=== PATIENT | male | born 1960 | race Caucasian/White ===

== ENCOUNTER 2019-05-09 09:59 | Emergency (ER) | payer BC ==
[2019-05-09] MEDS ORDERED: Sodium Chloride 0.9% 2.5 ML Syringe FLUSH PRN (10:11)
[2019-05-09] MEDS ORDERED: Sodium Chloride 0.9% 10 ML Syringe FLUSH PRN (10:11)
[2019-05-09] MEDS ORDERED: methylPREDNISolone Sodium Succinate 125 MG/2 ML SDV IVPUSH ONE (10:12)
--- NOTE | 2019-05-09 10:12 | EDM.PDOC ---
ED HPI GENERAL MEDICAL PROBLEM - General Chief Complaint: ENT Problem Stated Complaint: MOUTH COMPLAINT Time Seen by Provider: 05/09/19 10:10 Source of Information: Reports: Patient History Limitations: Reports: No Limitations - History of Present Illness INITIAL COMMENTS - FREE TEXT/NARRATIVE: HISTORY AND PHYSICAL: History of present illness: Patient is a 58-year-old male presents to the ED with complaint of sore throat and swelling. He states it started yesterday. He states his tongue is sore and swollen and having pain in his throat, mostly on the left. He is able to swallow his secretions most of the time but is having some trouble with this. He denies fevers, chills, shortness of breath, stridor, or wheezing. Review of systems: As per history of present illness and below otherwise all systems reviewed and negative. Past medical history: As per history of present illness and as reviewed below otherwise noncontributory. Surgical history: As per history of present illness and as reviewed below otherwise noncontributory. Social history: No reported history of drug or alcohol abuse. Family history: As per history of present illness and as reviewed below otherwise noncontributory. Physical exam: General: Patient sitting comfortably in no acute distress and nontoxic appearing HEENT: Tongue is swollen and slightly erythematous and tender to palpation. His left tonsils is 2+ and erythematous with exudate. Atraumatic, normocephalic, pupils reactive, negative for conjunctival pallor or scleral icterus, mucous membranes moist, neck supple, nontender, trachea midline. No meningeal signs. Lungs: Clear to auscultation, breath sounds equal bilaterally, chest nontender. Heart: S1S2, regular, negative for clicks, rubs, or overt murmur. Abdomen: Soft, nondistended, nontender. Negative for masses or hepatosplenomegaly. Negative for costovertebral tenderness. No rigidity, rebound , guarding. Pelvis: Stable nontender. Genitourinary: Deferred. Rectal: Deferred. Extremities: Atraumatic, negative for cords or calf pain. Neurovascular unremarkable. Neuro: Awake, alert, oriented. Cranial nerves II through XII unremarkable. Cerebellum unremarkable. Motor and sensory unremarkable throughout. Exam nonfocal. Notes: Discussed with patient admitting for IV antibiotics which he declined at this time and understands my concerns and the risks of this including . Diagnostics: CBC, CMP, Rapid strep, soft tissue neck x-ray Therapeutics: 1L NS IV 10mg Decadron IV 1g Rocephin IV Prescriptions: Impression: Tonsillitis, glossitis Plan: Patient signed out AMA Definitive disposition and diagnosis as appropriate pending reevaluation and review of above. Throat Pain Score (Numeric/FACES): 8 - Related Data Allergies Allergy/AdvReac Type Severity Reaction Status Date / Time No Known Allergies Allergy Verified 05/09/19 10:04 Home Meds: Home Meds Penicillin V Potassium 500 mg PO TID 10 Days #30 tab 05/09/19 [Rx] methylPREDNISolone [Medrol] 4 mg PO ASDIRECTED #1 tab.ds.pk 05/09/19 [Rx] Past Medical History - Past Health History Medical/Surgical History: Denies Medical/Surgical History Social & Family History - Family History Family Medical History: Noncontributory - Tobacco Use Smoking Status *Q: Current Every Day Smoker Years of Tobacco use: 40 Packs/Tins Daily: 0 - Recreational Drug Use Recreational Drug Use: No ED ROS ENT - Review of Systems Review Of Systems: ROS reveals no pertinent complaints other than HPI. ED EXAM, ENT - Physical Exam Exam: See Below (see dictation) Course - Vital Signs Last Recorded V/S: Last Vital Signs Temp 97.5 F 05/09/19 10:01 Pulse 98 05/09/19 13:12 Resp 16 05/09/19 13:12 BP 121/70 05/09/19 13:12 Pulse Ox 96 05/09/19 13:12 - Orders/Labs/Meds Orders: Active Orders 24 hr Category Date Time Status CULTURE BLOOD [BC] Stat Lab 05/09/19 10:28 Received CULTURE BLOOD [BC] Stat Lab 05/09/19 10:53 Received CULTURE STREP A CONFIRMATION [RM] Stat Lab 05/09/19 10:05 Results STREP SCRN A RAPID W CULT CONF [RM] Stat Lab 05/09/19 10:05 Results Blood Culture x2 Reflex Set [OM.PC] Stat Oth 05/09/19 10:35 Ordered Saline Lock Insert [OM.PC] Stat Oth 05/09/19 10:11 Ordered Labs: Laboratory Tests 05/09/19 05/09/19 05/09/19 Range/Units 10:28 10:28 10:28 WBC 13.97 H (4.0-11.0) K/uL RBC 4.86 (4.50-5.90) M/uL Hgb 16.2 (13.0-17.0) g/dL Hct 46.7 (38.0-50.0) % MCV 96.1 (80.0-98.0) fL MCH 33.3 H (27.0-32.0) pg MCHC 34.7 (31.0-37.0) g/dL RDW Std Deviation 49.0 (28.0-62.0) fl RDW Coeff of [place] 14 (11.0-15.0) % Plt Count 255 (150-400) K/uL MPV 10.00 (7.40-12.00) fL Neut % (Auto) 77.4 (48.0-80.0) % Lymph % (Auto) 11.0 L (16.0-40.0) % [place] % (Auto) 10.9 (0.0-15.0) % Eos % (Auto) 0.4 (0.0-7.0) % Baso % (Auto) 0.3 (0.0-1.5) % Neut # (Auto) 10.8 H (1.4-5.7) K/uL Lymph # (Auto) 1.5 (0.6-2.4) K/uL [place] # (Auto) 1.5 H (0.0-0.8) K/uL Eos # (Auto) 0.1 (0.0-0.7) K/uL Baso # (Auto) 0.0 (0.0-0.1) K/uL Nucleated RBC % 0.0 /100WBC Nucleated RBCs # 0 K/uL Lactate 1.1 (0.20-2.00) mmol/L Sodium 135 L (136-148) mmol/L Potassium 4.1 (3.5-5.1) mmol/L Chloride 99 (98-107) mmol/L Carbon Dioxide 23.1 (21.0-32.0) mmol/L BUN 13 (7.0-18.0) mg/dL Creatinine 1.0 (0.8-1.3) mg/dL Est Cr Clr Drug Dosing 92.48 mL/min Estimated GFR (MDRD) > 60.0 ml/min Glucose 98 (74-106) mg/dL Calcium 10.0 (8.5-10.1) mg/dL Total Bilirubin 0.8 (0.2-1.0) mg/dL AST 10 L (15-37) IU/L ALT 16 (14-63) IU/L Alkaline Phosphatase 79 (46-116) U/L Total Protein 7.7 (6.4-8.2) g/dL Albumin 3.4 (3.4-5.0) g/dL Globulin 4.3 H (2.6-4.0) g/dL Albumin/Globulin Ratio 0.8 L (0.9-1.6) Meds: Medications Discontinued Medications Generic Name Dose Route Start Last Admin Trade Name Freq PRN Reason Stop Dose Admin Dexamethasone 10 mg 05/09/19 10:20 05/09/19 10:39 Dexamethasone IVPUSH 05/09/19 10:21 10 mg ONETIME ONE Administration Sodium Chloride 1,000 mls @ 999 mls/hr 05/09/19 10:21 05/09/19 11:46 Normal Saline IV 05/09/19 11:21 999 mls/hr STAT ONE Infusion Ceftriaxone Sodium/Dextrose 1 50 mls @ 100 mls/hr 05/09/19 10:26 05/09/19 10: 39 gm/ Premix IV 05/09/19 10:55 100 mls/hr ONETIME ONE Administration Iopamidol 80 ml 05/09/19 11:40 05/09/19 11:40 Isovue Multipack-370 (76%) IVPUSH 05/09/19 11:41 80 ml ONETIME STA Administration Methylprednisolone Sodium Succinate 125 mg 05/09/19 10:12 05/09/19 10:41 Solu-Medrol IVPUSH 05/09/19 10:13 Not Given ONETIME ONE Sodium Chloride 10 ml 05/09/19 10:11 Saline Flush FLUSH ASDIRECTED PRN Keep Vein Open Sodium Chloride 2.5 ml 05/09/19 10:11 Saline Flush FLUSH ASDIRECTED PRN Keep Vein Open Departure - Departure Time of Disposition: 13:30 Disposition: Home, Self-Care 01 Condition: Good Clinical Impression: Tonsillitis, Glossitis - Discharge Information Prescriptions: methylPREDNISolone [Medrol] 4 mg PO ASDIRECTED #1 tab.ds.pk Penicillin V Potassium 500 mg PO TID 10 Days #30 tab Instructions: Tonsillitis, [id number] Referrals: PCP,Unknown [Primary Care Provider] - Forms: ED Department Discharge Additional Instructions: The following information is given to patients seen in the emergency department who are being discharged to home. This information is to outline your options for follow-up care. We provide all patients seen in our emergency department with a follow-up referral. The need for follow-up, as well as the timing and circumstances, are variable depending upon the specifics of your emergency department visit. If you don't have a primary care physician on staff, we will provide you with a referral. We always advise you to contact your personal physician following an emergency department visit to inform them of the circumstance of the visit and for follow-up with them and/or the need for any referrals to a consulting specialist. The emergency department will also refer you to a specialist when appropriate. This referral assures that you have the opportunity for follow-up care with a specialist. All of these measure are taken in an effort to provide you with optimal care, which includes your follow-up. Under all circumstances we always encourage you to contact your private physician who remains a resource for coordinating your care. When calling for follow-up care, please make the office aware that this follow-up is from your recent emergency room visit. If for any reason you are refused follow-up, please contact the [facility] Emergency Department at and asked to speak to the emergency department charge nurse. [facility] Primary Care [address] [place] [id number] [id number] Take medications as instructed Follow up with primary care provider Return to ED as needed as discussed - My Orders Last 24 Hours: My Active Orders 05/09/19 10:05 CULTURE STREP A CONFIRMATION [RM] Stat STREP SCRN A RAPID W CULT CONF [RM] Stat 05/09/19 10:11 Saline Lock Insert [OM.PC] Stat 05/09/19 10:28 CULTURE BLOOD [BC] Stat 05/09/19 10:35 Blood Culture x2 Reflex Set [OM.PC] Stat 05/09/19 10:53 CULTURE BLOOD [BC] Stat - Assessment/Plan Last 24 Hours: My Active Orders 05/09/19 10:05 CULTURE STREP A CONFIRMATION [RM] Stat STREP SCRN A RAPID W CULT CONF [RM] Stat 05/09/19 10:11 Saline Lock Insert [OM.PC] Stat 05/09/19 10:28 CULTURE BLOOD [BC] Stat 05/09/19 10:35 Blood Culture x2 Reflex Set [OM.PC] Stat 05/09/19 10:53 CULTURE BLOOD [BC] Stat
[2019-05-09] MEDS ORDERED: Dexamethasone 10 MG/ML SDV IVPUSH ONE (10:20)
[2019-05-09] MEDS ORDERED: Sodium Chloride 0.9% 1,000 ML IV ONE (10:21)
[2019-05-09] MEDS ORDERED: cefTRIAXone 1 GM in Premix Bag 1 BAG IV ONE (10:26)
[2019-05-09 11:12] LABS: BLOOD UREA NITROGEN,BUN 13 mg/dL (7.0-18.0); CARBON DIOXIDE,CO2 23.1 mmol/L (21.0-32.0); CHLORIDE,CL 99 mmol/L (98-107); GLUCOSE RANDOM 98 mg/dL (74-106); POTASSIUM,K 4.1 mmol/L (3.5-5.1); SODIUM,NA 135 mmol/L (136-148)
[2019-05-09] MEDS ORDERED: Iopamidol 755 MG/ML 500 ML Multipack Bottle IVPUSH STA (11:40)
--- NOTE | 2019-05-09 12:41 | CT ---
INDICATION: Tongue/throat swelling. TECHNIQUE: Volumetric helical scanning of the neck was performed with 80 cc of Isovue 370 contrast material IV. Coronal and sagittal reconstructions were obtained. COMPARISON: None. FINDINGS: The palatine tonsils are prominent. No tonsillar or parapharyngeal abscess is evident. The epiglottis and aryepiglottic folds are grossly normal. Prominent jugulodigastric lymph nodes are present bilaterally but no lymphadenopathy is apparent. The airway is normal. The larynx is unremarkable. The salivary and thyroid glands are within normal limits. No vascular abnormality is demonstrated. The visualized paranasal and mastoid sinuses are clear. The lung apices are essentially clear. Calcified carotid bulb plaques are present bilaterally No significant bony abnormality is demonstrated. IMPRESSION: 1. Prominent palatine tonsils but no abscess evident. 2. Grossly normal epiglottis and aryepiglottic folds. 3. Calcified carotid bulb plaques bilaterally. Please note that all CT scans at this facility use dose modulation, iterative reconstruction, and/or weight-based dosing when appropriate to reduce radiation dose to as low as reasonably achievable. Dictated by Jelani Callaway MD @ May 09 2019 12:25PM Signed by Dr. Jelani Callaway @ May 09 2019 12:39PM
== END 2019-05-09 13:10 | disposition home or self-care (01) ==
LOC: MW.ED 09:59
DX: J03.90 Acute tonsillitis, unspecified (principal); K14.0 Glossitis; F17.200 Nicotine dependence, unspecified, uncomplicated
CPT/HCPCS: 70491; 80053; 83605; 85025; 87040; 87081; 87880; 96361; 96365; 96375; 99284; J0696; J1100; J7040; Q9967